=== PATIENT | male | born 1990 | race African-American/Black ===

== ENCOUNTER 2017-11-13 15:37 | Emergency (ER) | payer OTHER ==
[2017-11-13 16:20] LABS: Reticulocyte Count 23.8 % (0.5-1.5)
[2017-11-13 16:22] LABS: Bilirubin Negative (Negative); Blood, Urine Moderate (Negative); Clarity CLEAR (Clear); Glucose, Urine (Dipstick) Negative (Negative); Leukocyte Negative (Negative); Nitrite Negative (Negative); Protein, Urine (Dipstick) 100 mg/dL (Neg-Trace); Specific Gravity, Urine 1.009 (1.002-1.036)
[2017-11-13 16:25] LABS: Bacteria/HPF None Seen HPF (None Seen); Hyaline Casts/LPF 0-3 HYALINE CAST LPF (0-3 Hyaline); Squamous Epithelial None Seen HPF (0-3); WBC/HPF 0-3 HPF (0-3)
[2017-11-13 16:27] LABS: ALT (SGPT) 46 U/L (8-55); AST (SGOT) 52 U/L (5-34); Albumin 4.5 g/dL (3.5-5.0); Alkaline Phosphatase 71 U/L (40-150); Anion Gap 12 mmol/L (10-20); BUN (Urea Nitrogen) 35 mg/dL (8.9-20.6); Bilirubin, Total 4.9 mg/dL (0.2-1.2); Calc. Creatinine Clearance 0 mL/min (70-130); Calcium 9.2 mg/dL (7.8-10.44); Carbon Dioxide 22 mmol/L (22-29); Chloride 110 mmol/L (98-107); Estimated GFR-MDRD 34; Glucose 78 mg/dL (70-105); Potassium 5.1 mmol/L (3.5-5.1); Protein, Total 8.5 g/dL (6.0-8.3); Sodium 139 mmol/L (136-145)
[2017-11-13 16:36] LABS: Hemoglobin 6.3 g/dL (14.0-18.0); Mean Corpuscular HGB CONC 37.1 g/dL (32.0-36.0); Mean Corpuscular Volume 94.5 fL (78.0-98.0); Mean Platelet Volume 8.2 fL (7.4-10.4); Platelet Count 445 thou/uL (130-400); RBC Distribution Width 25.4 % (11.5-14.5); Red Blood Cell (RBC) Count 1.75 mill/uL (4.70-6.10); White Blood Cell (WBC) Count 8.9 thou/uL (4.8-10.8)
[2017-11-13 16:40] LABS: Anisocytosis MODERATE=16-30 cells (100X) (0-5/hpf); Band 5 % (5-11); Elliptocytes MODERATE= 6-15 cells (100X) (0-1/hpf); Eosinophils 2 % (0-10); Giant Platelets SLIGHT; Large Platelets SLIGHT; Lymphocytes 28 % (21-51); MDiff Complete? YES; Monocytes 9 % (0-10); Neutrophil 56 % (42-75); Nucleated RBC 11 % (0); Ovalocytes SLIGHT = 2-5 cells (100X) (0-1/hpf); PLT Morphology Comment Appears Increased; Poikilocytosis MODERATE=16-30 cells (100X) (0-5/hpf); Polychromasia MODERATE = 3-4 cells (100X) (0-2/hpf); Schistocytes SLIGHT = 2-5 cells (100X) (0-1/hpf); Sickle Cells SLIGHT = 1-5 cells (100X) (None Seen); Tear Drops SLIGHT = 2-5 cells (100X) (0-1/hpf)
[2017-11-13] MEDS ORDERED: Acetaminophen 325 MG TAB ONE (16:43)
--- NOTE | 2017-11-13 17:04 | RAD ---
CHEST ONE VIEW: 11/13/17 HISTORY: Sickle cell disease. Chest pain. COMPARISON: 02/23/14. FINDINGS: The cardiac silhouette remains enlarged. Pulmonary vasculature is unremarkable. Mediastinum is midlin e. No lobar consolidation or evidence of pneumothorax. monitoring and evaluation advisor leads overlie the chest. IMPRESSION: Cardiomegaly, stable. No active cardiopulmonary abnormalities are otherwise demonstrated. POS: [facility]
--- NOTE | 2017-11-13 18:46 | CT ---
CT BRAIN NONCONTRAST: DATE: 11/13/2017 TIME: 4:56 p.m. HISTORY: A 27-year-old male with sickle cell anemia with hypesthesia (numbness) of the right upper extremity a nd the right lower extremity. COMPARISON: CT from 02/23/2014. FINDINGS: There was an acute or subacute infarction involving a large portion of the left basal ganglia and lef t caudate nucleus on the 02/23/2014 CT, which was demonstrated on the of 02/24/2014, with extensive r estricted diffusion. These areas have now become encephalomalacia and gliosis, now with associated m ild ex vacuo dilation of the frontal horn of the left lateral ventricle. There is a tiny, hypodense focus at the anterior limb of the right internal capsule, abutting the rig ht caudate nucleus on the current CT, new since the previous CT and also new since the previous MRI, suggestive of an acute or subacute tiny lacunar infarction in that location. Again noted are the two old infarction in the left parasagittal anterior frontal lobe, of small to mo derate size. No obstructive hydrocephalus, acute intraaxial or extraaxial hemorrhage, mass effect, midline shift, or extraaxial fluid collection. No acute calvarial fracture. The mildly expansile osteolytic lesion involving the right parietal bone is unchanged since 02/23/2014. A cluster of a few faint, tiny, karimi btle, ill defined hypodensities in the frontal bone is also unchanged. The paranasal sinuses superio r to the maxillary sinuses, and the bilateral tympanomastoid cavities, are grossly clear. IMPRESSION: 1. Tiny lacunar infarction in the right corpus striatum is suspected to be acute or subacute. 2. 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 3. Two small to moderate sized old infarction of left anterior cerebral artery territory. 4. No acute intracranial hemorrhage or mass effect. YENNY R POS: [facility]
== END 2017-11-13 19:47 | disposition short-term general hospital (02) ==
LOC: ERS 15:37
DX: I63.9 Cerebral infarction, unspecified (principal); D57.00 Hb-SS disease with crisis, unspecified; N17.9 Acute kidney failure, unspecified
CPT/HCPCS: 70450; 71045; 80053; 81003; 81015; 85025; 85046; 96360

== ENCOUNTER 2020-01-02 14:04 | Emergency (ER) | payer MEDICAID, OTHER ==
[~2020-01-02 14:04] MED LIST: Iopamidol-370 76% 500 ML 1 ML ONE
--- NOTE | 2020-01-02 14:27 | CT ---
CT HEAD WITHOUT IV CONTRAST COMPARISON: 11/13/2017 HISTORY: Stroke alert. Patient with headache, a aphasia and in development of expressive aphasia. TECHNIQUE: Axial CT imaging at 5 mm intervals from vertex through skull base without contrast FINDINGS: There is been interval development of a large area of encephalomalacia involving the left middle cere bral artery territory and involving the majority of the left cerebral hemisphere with associated gliosis and areas of calcification and gyriform distribution the left frontal and parietal lobes like ly due to areas of laminar necrosis. Exit brachial dilatation of the left lateral ventricle is present. Low-density area in the region of the right caudate head/anterior limb right internal capsule is agai n seen related to remote lacunar infarction. No acute cortical infarction, hemorrhage, or mass effect is seen. There is slight shift of midline structures to the left secondary to the generalized volume loss and encephalomalacia involving the left middle cerebral hemisphere distribution. Skull base has a normal CT appearance. Visualized paranasal sinuses are clear. 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 A few hemangiomas are seen in the anterio r right frontal bone. IMPRESSION: 1. No acute intracranial abnormality demonstrated. 2. Interval development of large area of encephalomalacia involving the left middle cerebral artery d istribution suggesting large area of remote infarction.
[2020-01-02 14:41] LABS: Hemoglobin 9.9 g/dL (14.0-18.0); Mean Corpuscular HGB CONC 34.5 g/dL (32.0-36.0); Mean Platelet Volume 8.7 fL (7.4-10.4); Platelet Count 282 thou/uL (130-400); RBC Distribution Width 14.4 % (11.5-14.5); Red Blood Cell (RBC) Count 2.05 mill/uL (4.70-6.10)
[2020-01-02 14:42] LABS: Prothrombin Time 15.8 sec (12.0-14.7)
[2020-01-02 14:43] LABS: INR-International Normal Ratio 1.2
[2020-01-02 14:44] LABS: Reticulocyte Count 5.6 % (0.5-1.5)
[2020-01-02 14:48] LABS: ALT (SGPT) 34 U/L (8-55); AST (SGOT) 33 U/L (5-34); Albumin 4.1 g/dL (3.5-5.0); Alkaline Phosphatase 73 U/L (40-110); Anion Gap 14 mmol/L (10-20); BUN (Urea Nitrogen) 21 mg/dL (8.9-20.6); Bilirubin, Total 1.5 mg/dL (0.2-1.2); CK (CPK) 53 U/L (30-200); Calc. Creatinine Clearance 0 mL/min (70-130); Calcium 9.1 mg/dL (7.8-10.44); Carbon Dioxide 21 mmol/L (22-29); Chloride 109 mmol/L (98-107); Estimated GFR-MDRD 62; Globulin 3.8 g/dL (2.4-3.5); Glucose 67 mg/dL (70-105); Potassium 4.7 mmol/L (3.5-5.1); Protein, Total 7.9 g/dL (6.0-8.3); Sodium 139 mmol/L (136-145)
[2020-01-02 14:56] LABS: Eosinophils 3 % (0-10); Large Platelets SLIGHT; Lymphocytes 21 % (21-51); MDiff Complete? YES; Macrocytosis MODERATE=16-30 cells (100X) (0-5/hpf); Monocytes 10 % (0-10); Neutrophil 65 % (42-75); Ovalocytes SLIGHT = 2-5 cells (100X) (0-1/hpf); Platelet Morphology Comment Appears Adequate; Poikilocytosis SLIGHT = 6-15 cells (100X) (0-5/hpf); Polychromasia SLIGHT = 2-3 cells (100X) (0-2/hpf); Schistocytes SLIGHT = 2-5 cells (100X) (0-1/hpf); Sickle Cells SLIGHT = 1-5 cells (100X) (None Seen); Target Cells SLIGHT = 2-5 cells (100X) (0-1/hpf); White Blood Cell (WBC) Count 5.2 thou/uL (4.8-10.8)
[2020-01-02] MEDS ORDERED: Aspirin Chewable 81 MG TAB ONE (17:56)
--- NOTE | 2020-01-05 14:08 | CT ---
EXAM: CT angiogram head and neck with IV contrast and 3-D reconstruction PROVIDED CLINICAL HISTORY: Patient with headache, aphasia and development of expressive aphasia. Stroke COMPARISON: Noncontrast CT head obtained on this date. FINDINGS: The aortic arch is normal in caliber. There is a common origin of the innominate artery and left comm on carotid artery which are grossly patent. There is artifact extending through this region due to dense contrast within the left innominate vein and SVC. The right subclavian artery and visualized po rtions of the left subclavian artery are patent. Bilateral common carotid arteries are patent. The right internal carotid artery is patent. Left internal carotid is generally small in caliber. The bilateral vertebral arteries are codominant and patent. The basilar artery is patent. Evaluation of intracranial circulation demonstrates occlusion of the M1 segment left middle cerebral artery. The right middle cerebral artery and anterior cerebral arteries are patent. The right posterior cerebral artery is patent. There is occlusion of the left posterior cerebral artery which i s likely chronic in origin. However, no infarction is seen in the majority of the left posterior cerebral artery distribution which may be related to collateralization due to patient's young age. In addition, the A1 segments of each anterior cerebral artery are not visualized, but there is enhancement of the A2 segments of each anterior cerebral artery. This could be related to severe hypo plasia of each A1 segment of the anterior cerebral arteries versus prior/chronic occlusion with collateralization of the A2 segments. There is evidence of a small area of remote infarction in the a nterior left [place] distribution. No aneurysm is appreciated within the limitations of the technique of this exam. The venous sinuses appear patent based on this exam. A right internal jugular vein Mediport catheter is noted in place. Visualized lung apices are clear. S-shaped curvature cervical thoracic spine are seen. IMPRESSION: 1. 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 2. Occlusion of the left posterior cerebral artery, but the majority of the left posterior cerebral a rtery distribution does not demonstrate evidence of infarction, and findings could be secondary to collateral flow. 3. The A1 segments of each anterior cerebral artery are not visualized and may be severely hypoplasti c or chronically occluded with collateralization of flow as there is enhancement in each A2 segment of the anterior cerebral arteries. There is a very small area of remote infarction in the anterior as pect left anterior cerebral artery distribution. 3. Above findings discussed with Dr. Jacinto in the emergency department on 01/02/2020 at 1447 hours. Transcribed Date/Time: 01/05/2020 2:07 PM
== END 2020-01-02 19:26 | disposition short-term general hospital (02) ==
LOC: ERS 14:04
DX: I63.512 Cerebral infarction due to unspecified occlusion or stenosis of left middle cerebral artery (principal); D57.1 Sickle-cell disease without crisis; Z79.899 Other long term (current) drug therapy
CPT/HCPCS: 36415; 36416; 70450; 70496; 70498; 80053; 82550; 84484; 85025; 85046; 85610; 85730; 86850; 86900; 86901; 93005; Q9967